=== PATIENT | female | born 1995 | race Caucasian/White ===

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

== ENCOUNTER 2017-03-10 08:28 | Emergency (ER) | payer MEDICAID ==
[2017-03-10 08:36] VITALS: PULSE 78; O2SAT 98
[2017-03-10] MEDS ORDERED: AMOXICILLIN/CLAVULANATE POT 875/125 MG TAB PO ONE ×2 (09:16→09:19)
--- NOTE | 2017-03-10 09:36 | EDPHY ---
H & P Time Seen by Provider: 03/10/17 08:57 HPI/ROS: CHIEF COMPLAINT: Sore throat HISTORY OF PRESENT ILLNESS: The patient is a 21-year-old female who presents to the emergency department with sore throat x6 days. She has noted that her right tonsil is slightly more swollen than the left. She has moderate pain. It is worse with swallowing. Patient states that she has "tonsil stones. "She uses mouthwash but this did not relieve her symptoms. She has previously seen in ENT. She denies fevers or chills. No shortness of breath. No neck pain or stiffness. She also complains of mild right ear pain. REVIEW OF SYSTEMS: My complete review of systems is negative except as mentioned in the HPI. Past Medical/Surgical History: Includes endometriosis Past surgical history: Negative Social history: The patient is a student at [employer] Smoking Status: Never smoked Physical Exam: Vitals noted. Afebrile GENERAL: Well-appearing, in no acute distress, alert. HEENT: Eyes normal to inspection, no signs of dehydration. Patient has mildly swollen tonsils bilaterally. The right is more swollen than the left. There is no clear abscess formation. There is no discharge or pus. No lesions. Uvula is midline. NECK: No thyromegaly, no lymphadenopathy, supple. RESPIRATORY: Clear to auscultation bilaterally, no rales, rhonchi or wheezing. CVS: Regular rate and rhythm, no rubs, murmurs, or gallops. ABDOMEN: Soft, nontender, nondistended, no organomegaly. BACK: Normal to inspection, no CVA tenderness. SKIN: Normal color, no rash, warm, dry. No pallor. EXTREMITIES: No pedal edema, no calf tenderness, no Homans sign or cords, no joint swelling. NEURO/PSYCH: Alert and oriented x3, normal mood and affect, normal motor sensory exam. Constitutional: Initial Vital Signs Temperature (C) 36.8 C 03/10/17 08:30 Heart Rate 78 03/10/17 08:30 Respiratory Rate 16 03/10/17 08:30 Blood Pressure 98/65 L 03/10/17 08:30 O2 Sat (%) 98 03/10/17 08:30 O2 Delivery Mode Room Air Allergies/Adverse Reactions: No Known Allergies Allergy (Unverified 06/23/16 00:30) Home Medications: Medication Instructions Recorded Ortho-Cyclen 03/10/17 Medical Decision Making ED Course/Re-evaluation: In the emergency department I discussed possible etiologies with the patient. I answered all her questions. I discussed the possibility of peritonsillar and retropharyngeal abscess. At this time I see no clear area to drain. I discussed this at length with the patient. She will be started on antibiotics and return if her symptoms worsen. She is aware that she may need to return to the emergency department to have an abscess drained if her symptoms worsen. She was given follow-up with ENT. She will take her entire course of antibiotics. Differential Diagnosis: My differential includes but is not limited to pharyngitis, peritonsillar abscess, retropharyngeal abscess, mass, malignancy, bacteremia - Data Points Medications Given: Discontinued Medications Amoxicillin/Clavulanate Potassium (Augmentin 875mg) 875 mg PO EDNOW ONE PRN Reason: Protocol Stop: 03/10/17 09:20 Last Admin: 03/10/17 09:25 Dose: 875 mg Departure - Departure Disposition: Home, Routine, Self-Care Clinical Impression: Acute pharyngitis Qualifiers: Pharyngitis/tonsillitis etiology: unspecified etiology Qualified Code(s): J02.9 - Acute pharyngitis, unspecified Condition: Good Instructions: Pharyngitis (ED) Additional Instructions: Take your entire course of antibiotics. Return with increasing pain, swelling, shortness of breath or any other concerns. Referrals: JUAN R VILLATORO [Other] - As per Instructions Sanchez Souza MD [Medical Doctor] - 1-2 days without fail
[2017-03-10 10:00] VITALS: BP 100/76; RESP 12; TEMP 98.3
== END 2017-03-10 09:56 | disposition home or self-care (01) ==
DX: J02.9 Acute pharyngitis, unspecified (principal)

== ENCOUNTER 2017-03-11 21:09 | Emergency (ER) | payer MEDICAID ==
[2017-03-11 21:16] VITALS: O2SAT 97
[2017-03-11] MEDS ORDERED: DEXAMETHASONE 4 MG TAB PO ONE (21:43)
[2017-03-11] MEDS ORDERED: KETOROLAC 30 MG/1 ML SDV IM ONE (21:44)
[2017-03-11] MEDS ORDERED: CLINDAMYCIN 150 MG CAP PO ONE (21:45)
--- NOTE | 2017-03-11 22:15 | EDPHY ---
H & P Time Seen by Provider: 03/11/17 21:28 HPI/ROS: CHIEF COMPLAINT: Increasing tonsil pain HISTORY OF PRESENT ILLNESS: 22-year-old female presents to the emergency department reporting that she has had multiple episodes of tonsillitis in the past year. She was seen here yesterday after having 4 days of a sore throat and then noticing her right tonsil to be erythematous and swollen. Patient has had no fever, cold symptoms, runny nose, congestion, or headaches. No cough. Reports some discomfort when swallowing. Yesterday the patient was placed on Augmentin. She reports that her discomfort has increased and her tonsils seems to be more swollen. She tells me that in the past she seems to do well after receiving steroids. Patient also reports discomfort with opening her jaw. Also reports pain in her right ear. REVIEW OF SYSTEMS: Aside from elements discussed in the HPI, a comprehensive 10-point review of systems was reviewed and is negative. PAST MEDICAL HISTORY: Recurrent episodes of tonsillitis, tonsil stones. SOCIAL HISTORY: Nonsmoker. VITAL SIGNS: see nurse's notes. GENERAL: Well-developed, well-nourished, in no acute distress. HEENT: Atraumatic Eyes: PERRL, EOMI, no conjunctival injection. Ears: TM clear bilaterally. Nose: No discharge. Mouth: moist mucous membranes. Pharynx: Right tonsils erythematous the swelling and edema extending onto the soft palate. Uvula remains midline. No drooling. Posterior pharynx is also erythematous. Right tonsils normal. NECK: Supple, no adenopathy, no meningismus, no tenderness. Negative Kernig's and Brudzinski's. LUNGS: Clear to auscultation bilaterally, no wheezes, rhonchi or rales. CARDIAC: Regular rate and rhythm, no rubs, murmurs or gallops. ABDOMEN: Soft, nontender, bowel sounds normal. BACK: No CVA tenderness. EXTREMITIES: Normal, no edema, FROM. NEURO: Alert and oriented, grossly nonfocal. SKIN: Warm and dry, no rash. PSYCHIATRIC: Normal mentation, no agitation. Smoking Status: Never smoked Constitutional: Initial Vital Signs Temperature (C) 36.7 C 03/11/17 21:14 Heart Rate 92 03/11/17 21:14 Respiratory Rate 18 03/11/17 21:14 Blood Pressure 118/77 03/11/17 21:14 O2 Sat (%) 97 03/11/17 21:14 O2 Delivery Mode Room Air Allergies/Adverse Reactions: No Known Allergies Allergy (Verified 03/11/17 21:16) Home Medications: Medication Instructions Recorded Amoxicillin/Clavulanate Pot 875 mg PO BID 10 Days tab 03/10/17 [Augmentin 875 mg tab] Ortho-Cyclen 03/10/17 Clindamycin HCl [Clindamycin] 300 mg PO TID 7 Days cap 03/11/17 Clindamycin HCl [Clindamycin] 300 mg PO TID 7 Days cap 03/11/17 Medical Decision Making ED Course/Re-evaluation: Patient received Toradol IM as well as Decadron 8 mg by mouth. She received clindamycin in the emergency department. On re-examination approximately half an hour later she reports that the in her pain has improved slightly but she is now having more pain at the angle of the jaw and anterior neck. On re- examination, patient is able to her mouth water and I believe that the patient most likely does have a right peritonsillar abscess. Course was discussed with Dr. Claudio William, ENT. Patient will be evaluated 1st thing tomorrow morning at the ENT clinic with plans to most likely drain the abscess. Patient should be discharged home with instructions regarding adequate fluid intake, pain medications as needed, she is comfortable with this plan. She understands that the Decadron may require several hours before she starts to feel significant relief. She is able to eat and drink, tolerating p.o. fluids, and not drooling. She does not have a fever. Vital signs are stable. Differential Diagnosis: Differential diagnosis for the patient's sore throat was considered including but not limited to viral pharyngitis, bacterial pharyngitis, tonsillitis, tonsillar abscess, peritonsillar abscess, foreign body, epiglottitis, bacterial tracheitis. - Data Points Laboratory Results: 03/11/17 03/11/17 Unknown Unknown Group A Strep Screen NEGATIVE (NEGATIVE) Group A Strep DNA Pending Medications Given: Discontinued Medications Hydrocodone Bitart/Acetaminophen ([place] 5/325mg Prepack#6) 1 btl TAKEHOME EDNOW ONE Stop: 03/11/17 22:41 Last Admin: 03/11/17 22:45 Dose: 1 btl Clindamycin (Clindamycin) 300 mg PO EDNOW ONE PRN Reason: Protocol Stop: 03/11/17 21:46 Last Admin: 03/11/17 21:51 Dose: 300 mg Dexamethasone (Decadron) 8 mg PO EDNOW ONE Stop: 03/11/17 21:44 Last Admin: 03/11/17 21:47 Dose: 8 mg Ketorolac Tromethamine (Toradol) 30 mg IM EDNOW ONE Stop: 03/11/17 21:45 Last Admin: 03/11/17 21:47 Dose: 30 mg Ondansetron HCl (Zofran Odt 4 Mg Prepack#2) 1 btl TAKEHOME EDNOW ONE Stop: 03/11/17 22:54 Last Admin: 03/11/17 22:54 Dose: 1 btl Departure - Departure Disposition: Home, Routine, Self-Care Clinical Impression: Tonsillar enlargement, Peritonsillar abscess Condition: Good Instructions: Ondansetron (By mouth), Peritonsillar Abscess (ED), Tonsillitis ( ED) Additional Instructions: I discussed her course with Dr. Claudio William from [facility]. They would like to see you 1st thing tomorrow. You simply need to come to their office and they will evaluate UA at that time. Most likely this will include drainage. I recommend you change from Augmentin to clindamycin. Your 1st dose of clindamycin was given in the emergency department. You may take an additional dose 1st thing in the morning. I recommend Ibuprofen (Motrin, Advil) or Naproxen Sodium (Aleve) for pain and anti-inflammatory effects. You may take either one, but do not take both. Your dose is: Ibuprofen 600 mg every 6-8 hours with food. OR Naproxen Sodium (Aleve) 220 mg every 12 hours. You have also been given hydrocodone to use as needed for severe pain. Consider salt water gargles also to help with your throat pain. Return to the emergency department if you develop a fever, significant increase in pain, drooling, inability to swallow, shortness of breath or other concerns. Referrals: [facility] [Other] - As per Instructions Claudio William MD [Medical Doctor] - As per Instructions (Follow up with Dr. William or [address] of his colleagues at [facility] 1st thing tomorrow morning. Be sure they know that this is an emergency department follow -up visit and that we discussed your course with Dr. William.) Prescriptions: Clindamycin HCl [Clindamycin] 300 mg PO TID 7 Days cap Clindamycin HCl [Clindamycin] 300 mg PO TID 7 Days cap
[2017-03-11] MEDS ORDERED: HYDROCOD/APAP 5/325 PREPACK#6 BTL TAKEHOME ONE (22:40)
[2017-03-11] MEDS ORDERED: ONDANSETRON 4MG PREPACK#2 BTL TAKEHOME ONE ×2 (22:53)
[2017-03-11 22:58] VITALS: BP 121/68; PULSE 83; RESP 16; TEMP 98.6
== END 2017-03-11 22:59 | disposition home or self-care (01) ==
DX: J36 Peritonsillar abscess (principal)
CPT/HCPCS: J1885

== ENCOUNTER 2018-10-05 23:38 | Emergency (ER) | payer MEDICAID | END 2018-10-06 00:22 | disposition home or self-care (01) ==